=== PATIENT | male | born 1945 | race Caucasian/White ===

== ENCOUNTER 2024-07-05 08:46 | Day surgery (SDC) | payer OTHER ==
[~2024-07-05] VITALS: Ht 182.9 cm; Wt 124.0 kg
[~2024-07-05 08:46] MED LIST: Balanced Salt Epinephrine Irrigation Solution 500 mL IR SCH; Lidocaine HCl/Pf 1% 5 ML VIAL XX SCH; Midazolam HCl 1MG / ML 2ML Vial ONE; Moxifloxacin HCL 0.5 MG/0.1 ML 0.4MLSYR LEFTEYE SCH; PHENYLEPHRINE\\TROPICAMIDE\\TETRACAINE OPHTHALMIC DILATING SOLN LEFTEYE PRN; Povidone-Iodine 450 DROP/30 ML Solution LEFTEYE SCH; Povidone-Iodine 450 DROP/30 ML Solution ONE; Tetracaine HCl/Pf 0.5% Opth Soln 4 ml ONE; Triamcinolone Inj Susp 40 MG / ML 1ML Vial INJ SCH; Triamcinolone Inj Susp 40 MG / ML 1ML Vial ONE
[2024-07-05] MEDS ORDERED: LEVSOD75 PO (09:44)
[2024-07-05] MEDS ORDERED: Lisinopril-Hct1 EAC4 PO (09:48)
[2024-07-05] MEDS ORDERED: INSULIN GL100 UNIT/1 SC (09:51)
[2024-07-05] MEDS ORDERED: METF500 PO (09:53)
[2024-07-05] MEDS ORDERED: AMLO10 PO (09:55)
[2024-07-05] MEDS ORDERED: ATOR20 PO (09:55)
[2024-07-05] MEDS ORDERED: FURO20 PO (09:56)
[2024-07-05] MEDS ORDERED: CLOP75 PO (09:56)
[2024-07-05] MEDS ORDERED: METO25ER PO (09:57)
[2024-07-05] MEDS ORDERED: GABA300 (09:57)
[2024-07-05 11:00] VITALS: BP 134/62
== END 2024-07-05 11:01 | disposition home or self-care (01) ==
LOC: ORSCSDS 08:46
PROVIDERS: Ophthalmology
PROC: 08RK3JZ Replacement of Left Lens with Synthetic Substitute, Percutaneous Approach (ICD-10-PCS; principal; 2024-07-05 10:30)
DX: E11.36 Type 2 diabetes mellitus with diabetic cataract (principal); H25.813 Combined forms of age-related cataract, bilateral; I25.10 Atherosclerotic heart disease of native coronary artery without angina pectoris; I10 Essential (primary) hypertension; Z68.37 Body mass index [BMI] 37.0-37.9, adult; E66.9 Obesity, unspecified; Z79.84 Long term (current) use of oral hypoglycemic drugs; Z79.02 Long term (current) use of antithrombotics/antiplatelets; Z79.4 Long term (current) use of insulin; Z79.899 Other long term (current) drug therapy
CPT/HCPCS: 82947; J2250; J3301; V2632

== ENCOUNTER 2024-07-20 09:08 | Day surgery (SDC) | payer OTHER ==
[~2024-07-20] VITALS: Ht 182.9 cm; Wt 123.5 kg
[~2024-07-20 09:08] MED LIST changes: +AMLO10 PO; +ATOR20 PO; +CLOP75 PO; +Diazepam 5 MG Tab PO PRN; +Diazepam 5 MG Tab PO SCH; +FURO20 PO; +GABA300; +INSULIN GL100 UNIT/1 SC; +LEVSOD75 PO; +Lisinopril-Hct1 EAC4 PO; +METF500 PO; +METO25ER PO; -Midazolam HCl 1MG / ML 2ML Vial ONE; -Moxifloxacin HCL 0.5 MG/0.1 ML 0.4MLSYR LEFTEYE SCH; +Moxifloxacin HCL 0.5 MG/0.1 ML 0.4MLSYR RIGHTEYE SCH; +Ondansetron 4 MG SoluTab MM PRN; -PHENYLEPHRINE\\TROPICAMIDE\\TETRACAINE OPHTHALMIC DILATING SOLN LEFTEYE PRN; +PHENYLEPHRINE\\TROPICAMIDE\\TETRACAINE OPHTHALMIC DILATING SOLN RIGHTEYE PRN; -Povidone-Iodine 450 DROP/30 ML Solution LEFTEYE SCH; +Povidone-Iodine 450 DROP/30 ML Solution RIGHTEYE SCH; +diazePAM 2 MG,diazePAM 5 MG PO SCH
[2024-07-20] MEDS ORDERED: Diazepam 10 MG Tab ONE (09:51)
--- NOTE | 2024-07-20 10:10 | NUR ---
07/20/24 1010 Domonique Caceres 1005: ANXIETY "2 OR 3 OUT OF 10" 1008: 10 MG PO VALIUM GIVEN PER ORDERS TETRACAINE AT 1006 PLEDGET AT 1010
[2024-07-20] MEDS ORDERED: FISH OIL (10:13)
[2024-07-20] MEDS ORDERED: MULTIVITAMIN (10:13)
--- NOTE | 2024-07-20 10:50 | NUR ---
07/20/24 1050 Namita Dailey VITAL SIGNS AT 1049 BP: 153/73 O2: 95 P: 67 BLOW-BY OXYGEN AT 10 LITERS. PT DOZING, NO S/S OF DISTRESS.
[2024-07-20 11:07] VITALS: BP 151/63
== END 2024-07-20 11:24 | disposition home or self-care (01) ==
LOC: ORSCSDS 09:08
PROVIDERS: Ophthalmology
PROC: 08RJ3JZ Replacement of Right Lens with Synthetic Substitute, Percutaneous Approach (ICD-10-PCS; principal; 2024-07-20 10:30)
DX: E11.36 Type 2 diabetes mellitus with diabetic cataract (principal); H25.811 Combined forms of age-related cataract, right eye; Z96.1 Presence of intraocular lens; I25.10 Atherosclerotic heart disease of native coronary artery without angina pectoris; E78.5 Hyperlipidemia, unspecified; I10 Essential (primary) hypertension; Z86.73 Personal history of transient ischemic attack (TIA), and cerebral infarction without residual deficits; Z79.02 Long term (current) use of antithrombotics/antiplatelets; Z79.899 Other long term (current) drug therapy
CPT/HCPCS: 82947; A9270; J3301; V2632